=== PATIENT | male | born 1980 | race Caucasian/White ===

== ENCOUNTER → 2016-11-07 | Outpatient (CLI) | payer OTHER ==
--- NOTE | ~2016-11-07 | US6 ---
[facility] A Service of [facility] & [facility] & [facility] / [facility] RADIOLOGY TEXT RESULTS PATIENT: BING SCHOFIELD JR LOCATION: [facility] : 76 UNIT #: [id number] AGE: [address]: Nelida Booker MD SEX: M ORDER DR: [id number] [facility] [address] [place], [place] [address] [id number] O MR#: [id number] Acc #: [id number] NAME: BING SCHOFIELD JR : 1980 SEX: M STUDY DATE/TIME: 11/07/2016 7:27 UNIT: [facility] ROOM: STUDY DESCRIPTION: US Abdominal Limited Attending Physician: Nelida Booker M.D. Referring Physician: Nelida Booker M.D. Ordering Physician: Nelida Booker M.D. Primary Care Physician: Nelida Booker M.D. MEDICAL IMAGING REPORT This report is preliminary unless electronic signature is present EXAM Right upper quadrant ultrasound, 11/07/2016 HISTORY Epigastric pain for 3 weeks with nausea. FINDINGS Ultrasound examination of the gallbladder is negative. There is no cholelithiasis, gallbladder wall thickening, or bile duct dilatation. The visualized liver is negative. IMPRESSION Negative gallbladder ultrasound examination. Dictated by... Rickey Zheng M.D. THIS IS AN ELECTRONICALLY VERIFIED REPORT Rickey Zheng M.D. at 11/07/2016 5:34 PM MARTÍNEZ/angelica TD: 11/07/2016 13:33 JOB #: [id number] MEDICAL IMAGING REPORT Page 1 of 1 COPY
== END | disposition home or self-care (01) ==
LOC: CGUS 07:04
DX: R10.13 Epigastric pain (principal)
CPT/HCPCS: 76705